=== PATIENT | male | born 2000 | race African-American/Black ===

== ENCOUNTER 2021-01-30 22:20 | Emergency (ER) | payer MEDICAID ==
--- NOTE | 2021-01-30 23:09 | EDM.PDOC ---
ED HPI GENERAL MEDICAL PROBLEM - General Chief Complaint: Lower Extremity Injury/Pain Stated Complaint: RT ANKLE FB INJURY Time Seen by Provider: 01/30/21 22:39 - History of Present Illness INITIAL COMMENTS - FREE TEXT/NARRATIVE: Patient arrived ED by private vehicle He is accompanied by his girlfriend Injury occurred about 1000 today He twisted the right ankle while playing football He withdrew from the game at that point States he has not borne weight on the foot since then Has been using crutches for ambulation Pain is present on medial and lateral aspect of the ankle, more pronounced on the lateral aspect Associated mild swelling States that it also hurts when he moves his toes Endorses numb feeling to the heel Denies other pain or injury complaints Denies prior osseous injury to the right ankle He took ibuprofen 400 mg about 1 hour prior to arrival Current pain severity is rated 10/10 Right Ankle Pain Score (Numeric/FACES): 10 - Related Data Allergies Allergy/AdvReac Type Severity Reaction Status Date / Time No Known Allergies Allergy Verified 01/30/21 22:37 Home Meds: Home Meds . [No Known Home Meds] 01/30/21 [History] Past Medical History - Past Health History Medical/Surgical History: Denies Medical/Surgical History - Infectious Disease History Infectious Disease History: Reports: None Social & Family History - Family History Family Medical History: No Pertinent Family History - Tobacco Use Tobacco Use Status *Q: Never Tobacco User Second Hand Smoke Exposure: No - Caffeine Use Caffeine Use: Reports: None - Recreational Drug Use Recreational Drug Use: No Review of Systems - Review of Systems Review Of Systems: See Below Musculoskeletal: Reports: Joint Pain, Joint Swelling Skin: Denies: Wound Neurological: Denies: Weakness ED EXAM, GENERAL - Physical Exam Exam: See Below Free Text/Narrative:: Constitutional - awake; alert; no acute distress Head - no facial swelling or weakness Eyes - extra ocular motion intact; conjunctiva normal ENT - no nasal deformity; no epistaxis; normal phonation Neck - no swelling Respiratory - normal respiratory effort Cardiovascular - regular rhythm; normal rate Musculoskeletal: - Right lower extremity: --- mild swelling about lateral malleolus --- mild tenderness on palpation at lateral malleolar tip and submalleolar area --- mild tenderness medial malleolus --- no patella or fibular head tenderness --- normal dorsal pedal pulse --- no tenderness of navicular or fifth metatarsal base - otherwise grossly normal strength and motion; no swelling or deformity Skin - warm; dry Neurologic - normal speech; no weakness Psychiatric - normal mood and affect; memory and attention normal Course - Vital Signs Text/Narrative:: . Considered etiologies included: Sprain, fracture, contusion Symptoms and examination were discussed Investigations were initiated Results were discussed, with no findings for acute osseous injury Ankle splint was provided for support Symptomatic treatment and short-term use of crutches was reviewed Primary care follow-up was advised Patient was felt to be stable for outpatient follow-up Return precautions were provided Last Recorded V/S: Last Vital Signs Temp 36.4 C 01/30/21 22:32 Pulse 55 L 01/30/21 22:32 Resp 16 01/30/21 22:32 BP 149/74 H 01/30/21 22:32 Pulse Ox 98 01/30/21 22:32 - Radiology Interpretation Free Text/Narrative:: XR right ankle, interpreted by press writer: No acute fracture or dislocation Departure - Departure Time of Disposition: 23:19 Disposition: Home, Self-Care 01 Clinical Impression: Right ankle sprain - Discharge Information *PRESCRIPTION DRUG MONITORING PROGRAM REVIEWED*: Not Applicable *COPY OF PRESCRIPTION DRUG MONITORING REPORT IN PATIENT CHERRY: Not Applicable Instructions: Ankle Sprain Referrals: PCP,Not In Area [Primary Care Provider] - Forms: ED Department Discharge Additional Instructions: Return if condition worsens May resume light activity and regular diet as tolerated Use crutches as needed for assistance with walking Use ankle brace/splint as needed for support when walking May use IBUPROFEN 600 mg every 6 hours as needed for pain/inflammation Follow-up with primary care provider is recommended in 5 to 7 days Sepsis Event Note (ED) - Evaluation Sepsis Screening Result: No Definite Risk
--- NOTE | 2021-01-31 08:05 | CR ---
Right ankle: 4 views of the right ankle were obtained. Comparison: No prior ankle study is available. Soft tissue swelling is identified. Ankle mortise is symmetric. No acute fracture, dislocation or other bony abnormality is appreciated. Impression: 1. Soft tissue swelling. 2. Nothing acute is seen on right ankle study. Diagnostic code #2
== END 2021-01-30 23:30 | disposition home or self-care (01) ==
LOC: JD.ED 22:20
DX: S93.401A Sprain of unspecified ligament of right ankle, initial encounter (principal); X50.1XXA Overexertion from prolonged static or awkward postures, initial encounter; Y93.61 Activity, american tackle football
CPT/HCPCS: 73610-26-RT; 73610-RT; 99282; 99283-25

== ENCOUNTER 2021-05-10 23:45 | Emergency (ER) | payer MEDICAID ==
--- NOTE | 2021-05-11 00:51 | EDM.PDOCBH ---
<Guille Jiang - Last Filed: 05/11/21 09:22> ED HPI GENERAL MEDICAL PROBLEM - General Chief Complaint: Behavioral/Psych Stated Complaint: SUICIDAL Time Seen by Provider: 05/11/21 00:37 - Related Data Allergies Allergy/AdvReac Type Severity Reaction Status Date / Time No Known Allergies Allergy Verified 05/10/21 23:57 Home Meds: Home Meds . [No Known Home Meds] 01/30/21 [History] COURSE, BEHAVIORAL HEALTH COMP - Course Re-Assessment/Re-Exam: 09:15. Have assumed care from Dr Saldana after change of shift. I agree with his hx and exam as documented. Staff from [facility] has been here to see patient. They have done an appropriate assessment, have informed us they believe he is safe to go home, follow up and work with them on an outpatient basis. Pt is good with that plan. Discharge instr. as documented. Departure - Departure Time of Disposition: 09:22 Disposition: Home, Self-Care 01 Clinical Impression: Suicidal ideations - Discharge Information Instructions: Suicidal Feelings: How to Help Yourself, Helping Someone Who Is Suicidal Referrals: PCP,None [Primary Care Provider] - Forms: ED Department Discharge Additional Instructions: Follow up and work with [facility] as planned. Return to ED at any time if you feel unsafe or have any further thoughts or plan of self harm. <Hung Saldana - Last Filed: 05/11/21 19:17> ED HPI GENERAL MEDICAL PROBLEM - General Source of Information: Reports: Patient, Significant Other (Girlfriend) History Limitations: Reports: No Limitations - History of Present Illness INITIAL COMMENTS - FREE TEXT/NARRATIVE: Mr. Alves is a very pleasant 20-year-old man who now presents to the ED stating that he has been feeling suicidal for about a month, but worse over the past couple of weeks. He has considered harming himself by jumping off something tall, or ... he was unable to give any other examples. He states that he has never previously attempted suicide. He denies any prior psychiatric history or treatment. He states that he has never previously been admitted to a psychiatric facility. The patient denies injuring himself recently, but did acknowledge that he scratched his left forearm with a knife earlier tonight. Lyubov SKY had spoken to the patient's mother, who informed her that the pa tient broke up with his girlfriend around [place], and wondered whether or not louise's actions may be an effort for the patient to get back together with his girlfriend. Of note, the patient's girlfriend is in the room with the patient at this time. Here in the ED, the patient was initially found to be mildly bradycardic at 55 bpm, otherwise, he is hemodynamically stable, afebrile, saturating 90% on room air. He appears to be comfortable, in no acute distress. Other than his suicidal ideation, the patient denies having a recent fever, chills, sore throat, ear pain, nasal or sinus congestion, cough, dyspnea, chest pain, palpitations, nausea, vomiting, constipation, diarrhea, abdominal pain, urinary symptoms, recent weight gain or weight loss, recent bloody bowel movements or black bowel movements, recent joint aches, headaches, or rashes. The patient does not have a PCP. He is attending [employer], from home in [place], [place]. He has not received a COVID vaccination, nor an influenza vaccination this season. Past Medical History - Past Health History Medical/Surgical History: Denies Medical/Surgical History Social & Family History - Tobacco Use Tobacco Use Status *Q: Never Tobacco User Tobacco Use Within Last Twelve Months: Vaping (Nicotine) - Caffeine Use Caffeine Use: Reports: Coffee, Energy Drinks, Soda, Tea - Alcohol Use Alcohol Use History: Yes Alcohol Use Frequency: Rarely - Recreational Drug Use Recreational Drug Use: No - Living Situation & Occupation Living situation: Reports: Single, with Family Occupation: Student ([employer]) ED ROS GENERAL - Review of Systems Review Of Systems: Comprehensive ROS is negative, except as noted in HPI. ED EXAM, BEHAVIORAL HEALTH - Physical Exam Exam: See Below Exam Limited By: No Limitations General Appearance: Alert, WD/WN, No Apparent Distress Eye Exam: Bilateral Eye: EOMI, Normal Inspection Ears: Normal External Exam, Hearing Grossly Normal Nose: Normal Inspection Throat/Mouth: Normal Inspection, Normal Lips, Normal Voice, No Airway Compromise Head: Atraumatic, Normocephalic Neck: Normal Inspection, Full Range of Motion Respiratory/Chest: No Respiratory Distress, Lungs Clear, Normal Breath Sounds, No Accessory Muscle Use Cardiovascular: Normal Peripheral Pulses, Regular Rate, Rhythm, No Edema, No Gallop, No JVD, No Murmur, No Rub GI/Abdominal: Normal Bowel Sounds, Soft, Non-Tender, No Organomegaly, No Distention, No Abnormal Bruit, No Mass Back Exam: Normal Inspection, Full Range of Motion, NT Extremities: Normal Range of Motion, No Pedal Edema, Normal Capillary Refill, Other (Approximately 10 subtle erythematous tangential linear scratches on the volar aspect of the left forearm) Neurological: Alert, Normal Cognition, No Motor/Sensory Deficits, Oriented x 3 Psychiatric: Normal Affect Skin Exam: Warm, Dry, Intact, Normal color, No rash #1 Interpretation EKG Date: 05/11/21 Time: 01:15 Rhythm: Other (Sinus bradycardia) Rate (Beats/Min): 57 [place]: Normal P-Wave: Present QRS: Normal ST-T: Elevated (Diffuse J-point elevation) QT: Normal Comparison: NA - No Prior EKG COURSE, BEHAVIORAL HEALTH COMP - Course Vital Signs: Last Vital Signs Temp 36.2 C 05/10/21 23:53 Pulse 47 L 05/11/21 07:21 Resp 16 05/11/21 07:21 BP 118/74 05/11/21 07:21 Pulse Ox 100 05/11/21 07:21 Orders, Labs, Meds: Laboratory Tests 05/11/21 05/11/21 05/11/21 Range/Units 00:55 00:55 00:55 WBC 6.25 (4.23-9.07) K/mm3 RBC 5.24 (4.63-6.08) M/mm3 Hgb 14.9 (13.7-17.5) gm/dl Hct 42.9 (40.1-51.0) % MCV 81.9 (79.0-92.2) fl MCH 28.4 (25.7-32.2) pg MCHC 34.7 (32.2-35.5) g/dl RDW Std Deviation 40.5 (35.1-43.9) fL Plt Count 239 (163-337) K/mm3 MPV 10.4 (9.4-12.3) fl Neutrophils % (Manual) 69 H (40-60) % Band Neutrophils % 0 (0-10) % Lymphocytes % (Manual) 28 (20-40) % Atypical Lymphs % 0 % Monocytes % (Manual) 2 (2-10) % Eosinophils % (Manual) 0 L (0.8-7.0) % Basophils % (Manual) 1 (0.2-1.2) Platelet Estimate Adequate RBC Morph Comment Normal Sodium 140 (136-145) mEq/L Potassium 3.5 (3.5-5.1) mEq/L Chloride 104 (98-107) mEq/L Carbon Dioxide 27 (21-32) mEq/L Anion Gap 12.5 (5-15) BUN 22 H (7-18) mg/dL Creatinine 1.3 (0.7-1.3) mg/dL Est Cr Clr Drug Dosing 95.93 mL/min Estimated GFR (MDRD) > 60 (>60) mL/min BUN/Creatinine Ratio 16.9 (14-18) Glucose 96 (70-99) mg/dL Calcium 9.2 (8.5-10.1) mg/dL Total Bilirubin 0.3 (0.2-1.0) mg/dL AST 12 L (15-37) U/L ALT 16 (16-63) U/L Alkaline Phosphatase 66 (46-116) U/L Total Protein 7.6 (6.4-8.2) g/dl Albumin 4.0 (3.4-5.0) g/dl Globulin 3.6 gm/dL Albumin/Globulin Ratio 1.1 (1-2) TSH 3rd Generation 1.765 (0.516-4.13) uIU/mL Urine Color (Yellow) Urine Appearance (Clear) Urine pH (5.0-8.0) Ur Specific [place] (1.005-1.030) Urine Protein (Negative) Urine Glucose (UA) (Negative) Urine Ketones (Negative) Urine Occult Blood (Negative) Urine Nitrite (Negative) Urine Bilirubin (Negative) Urine Urobilinogen (0.2-1.0) Ur Leukocyte Esterase (Negative) Salicylates < 0.2 L (2.8-20) mg/dL Urine Opiates Screen (MOOHRF=399) Ur Buprenorphine Scrn (CUTOFF=10) Ur Oxycodone Screen (IWS1FY=994) Urine Methadone Screen (ZOB7JP=216) Ur Propoxyphene Screen (NAEMDW=113) Acetaminophen 0 L (10-30) ug/mL Ur Barbiturates Screen (VGJKPB=106) Ur Tricyclics Screen (CXECNN=996) Ur Phencyclidine Scrn (CUTOFF=25) Ur Amphetamine Screen (UJDLYB=927) U Methamphetamines Scrn (YKZPNJ=559) U Benzodiazepines Scrn (BHEZAF=101) U Cocaine Metab Screen (LUBUZP=097) U Marijuana (THC) Screen (CUTOFF=50) Ethyl Alcohol 0.00 (0.00) gm% SARS-CoV-2 RNA (PAUL) (NEGATIVE) 05/11/21 05/11/21 05/11/21 Range/Units 01:51 01:51 05:29 WBC (4.23-9.07) K/mm3 RBC (4.63-6.08) M/mm3 Hgb (13.7-17.5) gm/dl Hct (40.1-51.0) % MCV (79.0-92.2) fl MCH (25.7-32.2) pg MCHC (32.2-35.5) g/dl RDW Std Deviation (35.1-43.9) fL Plt Count (163-337) K/mm3 MPV (9.4-12.3) fl Neutrophils % (Manual) (40-60) % Band Neutrophils % (0-10) % Lymphocytes % (Manual) (20-40) % Atypical Lymphs % % Monocytes % (Manual) (2-10) % Eosinophils % (Manual) (0.8-7.0) % Basophils % (Manual) (0.2-1.2) Platelet Estimate RBC Morph Comment Sodium (136-145) mEq/L Potassium (3.5-5.1) mEq/L Chloride (98-107) mEq/L Carbon Dioxide (21-32) mEq/L Anion Gap (5-15) BUN (7-18) mg/dL Creatinine (0.7-1.3) mg/dL Est Cr Clr Drug Dosing mL/min Estimated GFR (MDRD) (>60) mL/min BUN/Creatinine Ratio (14-18) Glucose (70-99) mg/dL Calcium (8.5-10.1) mg/dL Total Bilirubin (0.2-1.0) mg/dL AST (15-37) U/L ALT (16-63) U/L Alkaline Phosphatase (46-116) U/L Total Protein (6.4-8.2) g/dl Albumin (3.4-5.0) g/dl Globulin gm/dL Albumin/Globulin Ratio (1-2) TSH 3rd Generation (0.516-4.13) uIU/mL Urine Color Yellow (Yellow) Urine Appearance Clear (Clear) Urine pH 5.5 (5.0-8.0) Ur Specific [place] 1.025 (1.005-1.030) Urine Protein Negative (Negative) Urine Glucose (UA) Negative (Negative) Urine Ketones Negative (Negative) Urine Occult Blood Negative (Negative) Urine Nitrite Negative (Negative) Urine Bilirubin Negative (Negative) Urine Urobilinogen 0.2 (0.2-1.0) Ur Leukocyte Esterase Negative (Negative) Salicylates (2.8-20) mg/dL Urine Opiates Screen Negative (VOHPID=020) Ur Buprenorphine Scrn Negative (CUTOFF=10) Ur Oxycodone Screen Negative (VQZ9KX=325) Urine Methadone Screen Negative (PLE3SC=882) Ur Propoxyphene Screen Negative (MLUZQZ=957) Acetaminophen (10-30) ug/mL Ur Barbiturates Screen Negative (SBMSSF=910) Ur Tricyclics Screen Negative (ACNUFL=959) Ur Phencyclidine Scrn Negative (CUTOFF=25) Ur Amphetamine Screen Negative (BYTDIQ=378) U Methamphetamines Scrn Negative (BYBETU=412) U Benzodiazepines Scrn Negative (GYCTKU=829) U Cocaine Metab Screen Negative (BNXNVD=940) U Marijuana (THC) Screen Negative (CUTOFF=50) Ethyl Alcohol (0.00) gm% SARS-CoV-2 RNA (PAUL) Negative (NEGATIVE) Medical Clearance: 05/11/21 00:48 I have reviewed the standard psychiatric medical clearance panel, along with a swab for the SARS-CoV-2 virus. The patient declined an offer for some food. 05/11/21 04:18 The patient's CBC is unremarkable. His CMP is remarkable for a BUN slightly elevated at 22, but with a Cr within normal limits at 1.3, and the remainder of his CMP being unremarkable. His TSH is within normal limits at 1.765. His salicylate level is undetectably low. His acetaminophen level is 0. His EtOH level is 0.00. His urine drug screen is completely negative. His swab for the SARS-CoV-2 virus is negative. 05/11/21 06:56 Since there is a significant shortage of psychiatric beds, we will endeavor to see if [facility] would be willing to come to the ED to evaluate the patient for the appropriateness of outpatient treatment. 05/11/21 07:31 Notified by Viridiana SKY that [facility] will come to evaluate the patient around 08:00. 05/11/21 08:[address] Jiang, and care of the patient turned over to him at this time, for change of shift. Departure - Discharge Information *PRESCRIPTION DRUG MONITORING PROGRAM REVIEWED*: Not Applicable Sepsis Event Note (ED) - Evaluation Sepsis Screening Result: No Definite Risk - Focused Exam Vital Signs: Vital Signs Pulse Resp BP Pulse Ox 05/11/21 07:21 47 L 16 118/74 100
[2021-05-11 01:42] LABS: ACETAMINOPHEN 0 ug/mL (10-30)
== END 2021-05-11 09:30 | disposition home or self-care (01) ==
LOC: JD.ED 23:45
DX: S50.812A Abrasion of left forearm, initial encounter (principal); Z20.822 Contact with and (suspected) exposure to COVID-19; X83.8XXA Intentional self-harm by other specified means, initial encounter
CPT/HCPCS: 36415; 80053; 80143; 80179; 80306; 80307; 81003; 84443; 85007; 85027; 93005; 99285-25; U0002